=== PATIENT | female | born 1985 | race Caucasian/White ===

== ENCOUNTER → 2021-07-06 15:56 | Outpatient (CLI) | payer OTHER, SELFPAY ==
--- NOTE | ~2021-07-06 | XR_ITS ---
XR chest 2V DATE: 07/06/2021 16:12 INDICATION: Tobacco usage TECHNIQUE: 2 views COMPARISON: None FINDINGS: Normal heart size. No hilar or mediastinal enlargement. No pulmonary infiltrate or consolid ation, pleural effusion or pulmonary vascular congestion or pneumothorax is detected. There is mild thoracic scoliosis. IMPRESSION: No active cardiopulmonary disease Reviewed, dictated and finalized at location B. CIATE PROFESSOR OF MEDIA ARTS
== END ==
PROVIDERS: PCP Emergency Medicine; Visit Provider Emergency Medicine
DX: Z72.0 Tobacco use (principal)
CPT/HCPCS: 71046

== ENCOUNTER → 2021-07-24 15:43 | Outpatient (CLI) | payer OTHER, SELFPAY ==
--- NOTE | ~2021-07-24 | XR_ITS ---
XR cervical spine 4-5V 07/24/2021 16:00 Indication: Neck pain Procedure: 6 views of the cervical spine Comparison: No prior studies for comparison. Findings: Vertebral body and disc heights are preserved. No fracture, subluxation or dislocation. Odontoid process is normal. No prevertebral soft tissue swelling. Lung apices are normal. Impression: 1: No significant abnormality of the cervical spine. Reviewed, dictated and finalized at location A. INSPECTOR HELPER Impression: 1: No significant abnormality of the cervical spine.
== END ==
PROVIDERS: PCP Emergency Medicine; Visit Provider Emergency Medicine
DX: M54.2 Cervicalgia (principal)
CPT/HCPCS: 72050

== ENCOUNTER 2021-10-19 08:29 | Emergency (ER) | payer OTHER, SELFPAY ==
[2021-10-19 08:36] VITALS: BP 124/91; PULSE 79; RESP 18; TEMP 36.6; O2SAT 100
[2021-10-19] MEDS: SODIUM CHLORIDE 0.9% IV 2,000 ML 999 ML IV CONT (09:04)
[2021-10-19 09:05] LABS: Basophils Absolute Auto 0.1 K/mm3 (0.0-0.1); Basophils Percent Auto 0.5 % (0.2-1.2); Eosinophils Absolute Auto 0.1 K/mm3 (0-0.3); Eosinophils Percent Auto 0.4 % (0-4.4); Hematocrit 45.7 % (37.0-47.0); Hemoglobin 15.1 g/dL (12.0-15.0); Immature Granulocyte Absolute 0.16 K/mm3 (0.00-0.031); Immature Granulocyte Percent A 1.1 % (0-0.5); Lymphocytes Absolute Auto 1.86 K/mm3 (0.9-3.2); Lymphocytes Percent Auto 12.5 % (18.3-44.2); Mean Corpuscular Hemoglobin 29.8 pg (26-34); Mean Corpuscular Volume 90.1 fl (80-100); Mean Platelet Volume 10.5 fl (7.4-10.4); Monocytes Absolute Auto 0.9 K/mm3 (0.1-0.6); Monocytes Percent Auto 6.1 % (2.6-8.5); Neutrophils Absolute Auto 11.8 K/mm3 (1.3-6.7); Neutrophils Percent Auto 79.4 % (45.5-73.1); Platelet Count Result 223 k/mm3 (150-375); Red Blood Count 5.07 M/mm3 (4.2-5.4); Red Cell Distribution Width 13.2 % (11.5-14.5); White Blood Count 14.9 K/mm3 (4.5-10.0)
[2021-10-19] MEDS: ONDANSETRON INJ 4 MG/2 ML VIAL IV PUSH (09:06)
[2021-10-19 09:12] LABS: Anion Gap 8 mmol/L (8-16); Blood Urea Nitrogen 12 mg/dL (7-17); Calcium 9.4 mg/dL (8.4-10.2); Carbon Dioxide 24 mmol/L (22-30); Chloride 106 mmol/L (98-107); Estimated CRCL calculation 113 ml/min; Estimated Glomerular Filt Rate > 60; Glucose 109 mg/dL (65-110); Potassium 3.6 mmol/L (3.4-5.0); Sodium 138 mmol/L (137-145)
[2021-10-19] MEDS: diphenhydrAMINE HCl INJ 50 MG/ML VIAL 25 MG IV PUSH (09:59)
[2021-10-19] MEDS: METOCLOPRAMIDE HCL INJ 10 MG/2 ML VIAL IV PUSH (09:59)
[2021-10-19 10:57] LABS: Appearance Urine Slightly Cloudy (Clear); Bilirubin Urine Negative (Negative); Blood Urine Negative (Negative); Color Urine Yellow (Yellow); Glucose Urine UA Negative (Negative); Ketones Urine 2+ mg/dL (Negative); Leukocyte Esterase Ur Negative LEU/UL (Negative); Nitrate Urine Negative (Negative); Protein Urine 1+ mg/dL (Negative); Specific Grav Ur >= 1.030 (1.001-1.035); Urobilinogen Urine 0.2 mg/dL (<2.0); pH Urine 5.5 (5.0-9.0)
[2021-10-19 11:06] LABS: Bacteria Urine Trace /hpf; Mucus Urine Heavy /lpf; RBC Urine 0-2 /hpf (0-2); Squamous Epithelial Cell Urine Few /hpf (Few); WBC Urine 0-3 /hpf
[2021-10-19 11:07] LABS: Add Urine Microscopic? YES
--- NOTE | 2021-10-19 11:56 | ED.NAVMDI ---
HPI - Nausea/Vomiting/Diarrhea General Chief complaint: Nausea/Vomiting/Diarrhea Stated complaint: /vomiting Time Seen by Provider: 10/19/21 08:41 History of Present Illness HPI Narrative: 36-year-old female who is 6 weeks presents here with nausea and vomiting, she states that she has not been able to keep anything down, this happened with her last also, this is not a wanted and her partner had gotten a vasectomy but had not gotten a sperm count. Denies any vaginal bleeding or abdominal pain, she is scheduled for an tomorrow. Related Data Allergies Allergy/AdvReac Type Severity Reaction Status Date / Time Penicillins Allergy Unknown Verified 03/29/16 15:37 Review of Systems Review of Systems: CONST: No fever. HEENT: No sore throat C/V: No chest pain RESP: No cough GI: Reports nausea, vomiting : No dysuria. M/S: No joint pain. SKIN: Itchy rash on both hands NEURO: [No headache or focal numbness or weakness] PSYCH: [No depression] [facility] Past Medical History Medical History Hyperemesis gravidarum Family History Family History Father Family history of suicide Sibling Family history of colonic diverticulitis Other Diabetes mellitus Family history of malignant neoplasm Social History Social History Smoking status: Smoker, status unknown Alcohol intake: never Exam Narrative: EXAMINATION OF ORGAN SYSTEMS/BODY AREAS: Constitutional: Vital signs per nursing GENERAL: Actively retching HEAD: Normal with no signs of head trauma. EYES: EOMI, conjunctiva normal ENT: Hearing grossly intact LUNGS: Nonlabored breathing. HEART: [Regular rate and rhythm] ABD: [Soft], no tenderness on palpation EXT: Normal range of motion SKIN: [No rashes or lesions.] NEURO: [Alert and oriented x 3. No gross focal sensory or strength deficits.] PSYCH: Appears very sad Course Vital Signs Vital signs: Vital Signs Temperature 97.8 F 10/19/21 08:36 Pulse Rate 79 10/19/21 08:36 Respiratory Rate 18 10/19/21 08:36 Blood Pressure 124/91 H 10/19/21 08:36 Pulse Oximetry 100 05/30/22 08:36 Oxygen Delivery Room Air 10/19/21 08:36 Temperature 97.8 F 10/19/21 08:36 Pulse Rate 87 10/19/21 12:11 Respiratory Rate 18 10/19/21 12:11 Blood Pressure 124/91 H 10/19/21 08:36 Pulse Oximetry 98 10/19/21 12:11 Oxygen Delivery Room Air 10/19/21 08:36 MDM - Nausea/Vomiting/Diarrhea MDM Narrative Medical decision making narrative: 36-year-old female at 6 weeks presents with nausea and vomiting, vital signs stable, exam shows soft nontender abdomen but very appearing patient was actively retching, concern is for nausea in , versus very unlikely ectopic as she has no abdominal pain or tenderness, versus gastritis versus viral illness. Itchy rash on hands do appear consistent with dyshidrotic eczema, much less likely scabies given the appearance, much less likely ringworm given the appearance Patient is given IV fluids here, Zofran with out much improvement, she is then given a dose of Reglan and afterwards states that she is feeling much better and ready to go home. Stable for discharge with return precautions provided and prescriptions for nausea provided. She is also counseled to make sure her hands stay moisturized and to use the hydrocortisone cream she has at home. Lab Data Result diagrams: 10/19/21 08:57 10/19/21 08:57 Labs: Lab Results 10/19/21 10/19/21 10/19/21 Range/Units 08:57 08:57 10:49 WBC 14.9 H (4.5-10.0) K/mm3 RBC 5.07 (4.2-5.4) M/mm3 Hgb 15.1 H (12.0-15.0) g/dL Hct 45.7 (37.0-47.0) % MCV 90.1 (80-100) fl MCH 29.8 (26-34) pg MCHC 33.0 (32-36) g/dl RDW 13.2 (11.5-14.5) % Plt Count 223 (150-3
[2021-10-19 12:11] VITALS: PULSE 87; RESP 18; O2SAT 98
== END 2021-10-19 12:12 | disposition home or self-care (01) ==
PROVIDERS: Emergency Provider Emergency Medicine; PCP Family Medicine
DX: O21.9 Vomiting of pregnancy, unspecified (principal); Z3A.01 Less than 8 weeks gestation of pregnancy
CPT/HCPCS: 36415; 80048; 81001; 85025; 96361; 96374; 96375; 99284; J1200; J2405; J2765; J7030

== ENCOUNTER 2022-04-26 16:49 | Emergency (ER) | payer OTHER, SELFPAY ==
--- NOTE | ~2022-04-26 | XR_ITS ---
EXAMINATION: XR chest 2V Exam Date/Time: 04/26/2022 18:00 WATER TRAINER HISTORY: COUGH,FATIGUE Comparison: 07/06/2021. RESULT: Lines, tubes, and devices: None. Lungs and pleura: Slightly increased mild diffuse reticulonodular opacities, streaky perihilar opaci ties and cuffing. Cardiomediastinal silhouette: Stable. Other: No acute osseous or upper abdominal finding. IMPRESSION: Pulmonary opacities may represent bronchiolitis, as can be seen with atypical infection, asthma, aspi ration, and small airways disease. Reviewed, dictated and finalized at location K. R TRAINER IMPRESSION: Pulmonary opacities may represent bronchiolitis, as can be seen with atypical i nfection, asthma, aspiration, and small airways disease.
[2022-04-26 17:00] VITALS: BP 119/66; PULSE 91; RESP 12; TEMP 36.5; O2SAT 100
--- NOTE | 2022-04-26 17:47 | ED.NAVMDI ---
HPI - Nausea/Vomiting/Diarrhea General Chief complaint: Nausea/Vomiting/Diarrhea Stated complaint: Abdominal Pain/Nausea/ Vomiting/Diarrhea Time Seen by Provider: 04/26/22 17:48 Source: patient, RN notes reviewed and old records reviewed Mode of arrival: ambulatory Limitations: no limitations History of Present Illness HPI Narrative: 36-year-old female presents to the [facility] with complaints of abdominal pain, nausea, vomiting and diarrhea. Patient reports that she just finished a [employer]. Symptoms have been going on for over 10 days and she just does not feel well. Tried calling her primary care provider who told her to get tested for ?everything?. Patient is doctor sent in an x-ray as well. Patient states 10 days ago she had a decreased in taste and smell. States currently she does not feel well. Denies any abdominal pain nausea or vomiting currently. Related Data Allergies Allergy/AdvReac Type Severity Reaction Status Date / Time Penicillins Allergy Unknown Rash Verified 04/26/22 17:03 Review of Systems Review of Systems: All systems reviewed & are unremarkable except as noted in HPI and below Constitutional: Constitutional: Reports as per HPI Eyes: Eyes: Reports no additional eye complaints ENT: Reports as per HPI and Reports sore throat Cardiovascular: Cardiovascular: Reports no additional cardiovascular complaints, Denies chest pain and Denies dyspnea Respiratory: Respiratory: Reports no additional respiratory complaints, Denies chest congestion, Denies cough and Denies dyspnea Gastrointestinal: Gastrointestinal: Reports no additional gastrointestinal complaints, Denies abdominal pain, Denies nausea and Denies vomiting Musculoskeletal: Musculoskeletal: Reports no additional musculoskeletal complaints Integumentary/Breasts: Skin/Breast: Reports system reviewed and no additional complaints, except as docu Neurologic: Reports system reviewed and no additional complaints, except as documented Psychiatric: Psychiatric: Reports no additional psychiatric complaints Allergic/Immunologic: Allergic/Immunologic: Reports no additional allergic/immunologic complaints [facility] Past Medical History Medical History Hyperemesis gravidarum Family History Family History Father Family history of suicide Sibling Family history of colonic diverticulitis Other Diabetes mellitus Family history of malignant neoplasm Social History Social History Smoking status: Smoker, status unknown Alcohol intake: never Comments At the time of my signature, I reviewed and agree with the nursing past medical, surgical, social, and family history. There is no relevant family history pertinent to the patient complaint. Exam Const: General: cooperative, healthy appearing, comfortable, no acute distress, well developed, alert, average body habitus and well nourished Nutritional Appearance: average body habitus and well nourished Orientation/consciousness: patient oriented x3 Limitations: no limitations HENMT: Head: normal to inspection Ears: hearing grossly normal bilaterally and external ears normal Face/Nose/Sinus: Normal external nose present, Normal nares present, Normal nasal mucous membranes and turbinates present and normal facial exam Face and sinus: normal facial exam Mouth: Yes Normal oral and palatal mucosa present, Yes lip normal and Yes moist mucous membranes Throat: posterior oropharynx normal and uvula midline Eyes: General: appearance normal, both eyes and all related structures Alignment and Position: alignment normal Periorbital: periorbital findings normal Conjunctivae: conjunctivae normal Pupils: Equal, round and reactive pupils present EOM: EOMs intact bilaterally Neck: Neck: normal visual inspection, full ROM, no lymphadenopathy and no meningeal sig
== END 2022-04-26 19:01 | disposition home or self-care (01) ==
PROVIDERS: Emergency Provider Nurse Practitioner; PCP Emergency Medicine
DX: J18.9 Pneumonia, unspecified organism (principal)
CPT/HCPCS: 71046; 99213; G0463

== ENCOUNTER 2022-10-10 09:18 | Emergency (ER) | payer OTHER, SELFPAY ==
--- NOTE | ~2022-10-10 | CT_ITS ---
EXAMINATION: CT abdomen pelvis w con INDICATION: Epigastric pain TECHNIQUE: Computed tomographic images of the abdomen and pelvis were obtained after the administrati on of 100 cc of Omnipaque 350 intravenous contrast. The dose-length product (DLP) was 394.10 mGy-cm. Automated exposure control and iterative reconstruction technique were employed. COMPARISON: 03/28/2016 FINDINGS: The lung bases are clear. The heart size is normal. The liver, spleen, pancreas, gallbladde r, and adrenal glands are normal. The kidneys are unremarkable. No pathologically enlarged abdominal or pelvic lymph nodes are identified. No free intraperitoneal gas or evidence of bowel obstruction. A small amount of free fluid in the pelvis is likely physiologic. The visualized osseous structures ar e unremarkable. IMPRESSION: 1. No CT correlate for the patient's symptoms. Reviewed, dictated and finalized at location A.
[2022-10-10 09:21] VITALS: BP 111/63; PULSE 61; RESP 16; TEMP 36.5; O2SAT 100
--- NOTE | 2022-10-10 09:39 | ED.GENADULT ---
HPI - General Adult General Chief complaint: Nausea/Vomiting/Diarrhea Stated complaint: sick for a week Time Seen by Provider: 10/10/22 09:22 History of Present Illness HPI narrative: Leigha Grace is a 37 y/o female who presents with reports of about a week long of intermittent nausea/vomiting/diarrhea. She reports that she was at a concert last Tuesday and started to have extreme exhaustion the Tuesday afterward through Tuesday or Tuesday. She started to have upper abdominal irritation with nausea and would make herself vomit to try to feel better. She felt better on Tuesday, then bad again on Tuesday, she felt better on then felt bad again Tuesday and Tuesday. Denies specific abdominal pain. Reports having bowel movements daily in the morning which has been soft intermittently. Denies any known fevers but reports of feeling hot and cold. Denies changes to urination Denies - had a tubal ligation this past May- also history of c-sections X2 Denies vaginal discharge or any changes there. Related Data Allergies Allergy/AdvReac Type Severity Reaction Status Date / Time Penicillins Allergy Unknown Rash Verified 10/10/22 09:23 Review of Systems Review of Systems: CONSTITUTIONAL: Denies fever, chills, or sweats. EYES: Denies visual changes, redness, or discharge. ENT: Denies rhinorrhea, congestion, sore throat, or otalgia. CARDIOVASCULAR: Denies chest pain, palpitations, or edema. RESPIRATORY: Denies cough or dyspnea. GASTROINTESTINAL: Reports of nausea, upper abdominal irritation, soft to loose bowel movements for about 1 week. GENITOURINARY: Denies dysuria or hematuria. SKIN: Denies rash or itching. MUSCULOSKELETAL: Denies back pain, joint pain, or myalgia. NEUROLOGIC: Denies headache, numbness, dizziness, or weakness. PSYCHIATRIC: Denies anxiety or depression. [facility] Past Medical History Medical History Hyperemesis gravidarum Family History Family History Father Family history of suicide Sibling Family history of colonic diverticulitis Other Diabetes mellitus Family history of malignant neoplasm Social History Social History Smoking status: Smoker, status unknown Alcohol intake: never Exam Narrative: GENERAL: Well-appearing, well-nourished, and in no acute distress. HEAD: Normocephalic, atraumatic. EYES: PERRLA and EOMI. ENT: Nares clear, no rhinorrhea or epistaxis. Mucous membranes moist. Oropharynx without tonsillar hypertrophy exudate or other lesions. NECK: Supple. No adenopathy or masses. No carotid bruits or JVD CHEST: Clear to auscultation. No respiratory distress. No wheezes rales or rhonchi HEART: Regular rate and rhythm. No murmur heard. Normal peripheral pulses. ABDOMEN: Soft, nontender, nondistended, normal active bowel sounds. EXTREMITIES: Normal range of motion. No edema. SKIN: Warm, dry, no rash. NEURO: No focal deficits. Alert and oriented x3. PSYCH: Normal mood and affect. Course Vital Signs Vital signs: Vital Signs Temperature 36.5 C 10/10/22 09:21 Pulse Rate 61 10/10/22 09:21 Respiratory Rate 16 10/10/22 09:21 Blood Pressure 111/63 10/10/22 09:21 Pulse Oximetry 100 10/10/22 09:21 Oxygen Delivery Room Air 10/10/22 09:21 Temperature 36.5 C 10/10/22 09:21 Pulse Rate 61 10/10/22 09:21 Respiratory Rate 16 10/10/22 09:21 Blood Pressure 111/63 10/10/22 09:21 Pulse Oximetry 100 10/10/22 09:21 Oxygen Delivery Room Air 10/10/22 09:21 Vitals reviewed by me. Medical Decision Making MDM Narrative Medical decision making narrative: On exam pt is resting comfortably on stretcher, she reports she thinks she might be feeling better now, but feels defeated from not feeling so well over the past week. Her exam is benign. Abdomen is soft, active bowel filipe
[2022-10-10] MEDS: PROCHLORPERAZINE EDISYLATE 10 MG/2 ML VIAL IV PUSH (09:44)
[2022-10-10] MEDS: SODIUM CHLORIDE 0.9% IV 1,000 ML 999 ML IV CONT (09:44)
[2022-10-10] MEDS: FAMOTIDINE 20 MG/2 ML VIAL IV PUSH (09:44)
[2022-10-10 09:46] LABS: Basophils Absolute Auto 0.1 K/mm3 (0.0-0.1); Basophils Percent Auto 0.7 % (0.2-1.2); Eosinophils Absolute Auto 0.1 K/mm3 (0-0.3); Eosinophils Percent Auto 0.4 % (0-4.4); Hematocrit 43.4 % (37.0-47.0); Hemoglobin 14.3 g/dL (12.0-15.0); Immature Granulocyte Absolute 0.07 K/mm3 (0.00-0.031); Immature Granulocyte Percent A 0.5 % (0-0.5); Lymphocytes Absolute Auto 1.89 K/mm3 (0.9-3.2); Lymphocytes Percent Auto 13.8 % (18.3-44.2); Mean Corpuscular HGB Conc 32.9 g/dl (32-36); Mean Corpuscular Hemoglobin 30.2 pg (26-34); Mean Corpuscular Volume 91.6 fl (80-100); Mean Platelet Volume 10.7 fl (7.4-10.4); Monocytes Absolute Auto 0.9 K/mm3 (0.1-0.6); Monocytes Percent Auto 6.5 % (2.6-8.5); Neutrophils Absolute Auto 10.7 K/mm3 (1.3-6.7); Neutrophils Percent Auto 78.1 % (45.5-73.1); Platelet Count Result 197 k/mm3 (150-375); Red Blood Count 4.74 M/mm3 (4.2-5.4); Red Cell Distribution Width 13.1 % (11.5-14.5); White Blood Count 13.7 K/mm3 (4.5-10.0)
[2022-10-10 09:53] LABS: Appearance Urine Cloudy (Clear); Bacteria Urine None Seen /hpf; Bilirubin Urine Negative (Negative); Blood Urine Negative (Negative); Color Urine Yellow (Yellow); Glucose Urine UA Negative (Negative); Ketones Urine Negative (Negative); Leukocyte Esterase Ur Negative LEU/UL (Negative); Nitrate Urine Negative (Negative); Non Pathogenic Casts 0-2; Protein Urine Negative (Negative); RBC Urine 0-2 /hpf (0-2); Specific Grav Ur 1.029 (1.001-1.035); Squamous Epithelial Cell Urine Few /hpf (Few); Urobilinogen Urine 0.2 mg/dL (<2.0); WBC Urine 0-5 /hpf
[2022-10-10 09:57] LABS: Alanine Aminotransferase 28 U/L (6-35); Albumin Level 4.3 g/dL (3.5-5.1); Alkaline Phosphatase 56 U/L (38-126); Anion Gap 8 mmol/L (8-16); Aspartate Amino Transferase 23 U/L (14-36); Bilirubin,Total 0.4 mg/dL (0.2-1.3); Blood Urea Nitrogen 18 mg/dL (7-17); Calcium 8.7 mg/dL (8.4-10.2); Carbon Dioxide 21 mmol/L (22-30); Chloride 107 mmol/L (98-107); Estimated CRCL calculation 112 ml/min; Estimated Glomerular Filt Rate > 60; Glucose 101 mg/dL (65-110); Lipase 90 U/L (23-300); Potassium 4.3 mmol/L (3.4-5.0); Sodium 136 mmol/L (137-145)
[2022-10-10 10:13] LABS: Add Urine Microscopic? YES
[2022-10-10 11:03] LABS: Lactic Acid Reflex 1.6 mmol/L (0.7-2.0)
[2022-10-10 11:09] VITALS: BP 120/80; PULSE 68; RESP 18; O2SAT 100
== END 2022-10-10 11:11 | disposition home or self-care (01) ==
PROVIDERS: Emergency Provider Nurse Practitioner Family; PCP Emergency Medicine
DX: K29.70 Gastritis, unspecified, without bleeding (principal); K58.9 Irritable bowel syndrome, unspecified
CPT/HCPCS: 36415; 74177; 80053; 81001; 81025; 83605; 83690; 85025; 96361; 96374; 96375; 99284; J0780; J7030; Q9967

== ENCOUNTER 2023-04-16 11:54 | Outpatient (CLI) | payer OTHER, SELFPAY ==
--- NOTE | ~2023-04-16 | MM_ITS ---
EXAMINATION: MM screening damon BI w sunday HISTORY: Screening mammogram TECHNIQUE: Craniocaudal and mediolateral oblique 3-D tomosynthesis images were obtained and synthetic 2-D images were generated. CAD analysis was submitted and interpreted. COMPARISON: No prior mammogram is available for comparison at this institution. BREAST PARENCHYMAL COMPOSITION:There are scattered areas of fibroglandular density. FINDINGS: No suspicious mass, calcification, or architectural distortion are identified in either sadia ast to suggest malignancy. IMPRESSION: No mammographic evidence of malignancy. Recommend routine screening mammography in one year. BI-RADS Category 1: Negative Reviewed, dictated and finalized at location . [facility]
== END 2023-04-16 11:55 | disposition home or self-care (01) ==
PROVIDERS: PCP Emergency Medicine; Visit Provider Surgery Plastic and Reconstructive Surgery
DX: Z12.31 Encounter for screening mammogram for malignant neoplasm of breast (principal)
CPT/HCPCS: 77063; 77067

== ENCOUNTER 2023-08-06 08:16 | Outpatient (CLI) | payer OTHER, SELFPAY ==
--- NOTE | 2023-08-06 08:37 | ECG_ITS ---
Measurements Intervals [place] Rate: 53 P: 75 MD: 116 QRS: 56 QRSD: 85 T: 44 QT: 403 QTc: 381 Interpretive Statements SINUS BRADYCARDIA WITH SHORT MD INTERVAL BORDERLINE ECG NO PREVIOUS ECG AVAILABLE FOR COMPARISON Electronically Signed On 08-06-2023 17:41:48 CDT by Xander Garcia D.O.
[2023-08-06 08:48] LABS: Hematocrit 42.3 % (37.0-47.0); Hemoglobin 13.5 g/dL (12.0-15.0)
== END 2023-08-06 08:17 | disposition home or self-care (01) ==
LOC: ANHLAB 08:18
PROVIDERS: PCP Emergency Medicine; Visit Provider Anesthesiology
DX: Z41.1 Encounter for cosmetic surgery (principal); R94.31 Abnormal electrocardiogram [ECG] [EKG]
CPT/HCPCS: 36415; 85014; 85018; 93005

== ENCOUNTER 2023-08-09 00:04 | Day surgery (SDC) | payer OTHER, SELFPAY ==
[2023-08-01 14:36] VITALS: BMI 22.8
--- NOTE | 2023-08-01 14:42 | PC.NURSE ---
Report to the Outpatient Waiting Room, entrance under the green pavilion located off [facility], at time 6:00 on date 08/09/23. Planned Procedure Time: 7:30. Time changes happen often and if your time is changed the preop area will call you the afternoon before. - You and your visitor will be asked to self-screen and do not enter if you have any COVID symptoms. - A mask is optional within the hospital at this time. Patients may have clear liquids (water, carbonated beverages, clear teas, apple juice) until 3 hours prior to surgery (4:30) with a maximum of 20 ounces. - No food from midnight until time of surgery Take the following medications with a SIP of water the morning of surgery: XANAX IF NEEDED DO NOT STOP ANY OF YOUR OTHER PRESCRIPTION MEDICATIONS PRIOR TO SURGERY ?EXCEPT THE FOLLOWING Medications to discontinue per physician: N/A Date to take last dose: N/A Please no make-up, nail ecuadorean, hairspray, perfume, deodorant, or body powder the day of surgery. No jewelry (including any body piercings) or valuables the day of surgery, leave them at home. Please take a shower or bath the night before, or the morning of, surgery with an antibacterial soap. Wear comfortable, loose fitting clothing. - Jewelry must be removed prior to entering the operating room. Rings and piercings that are not removed may be cut off. - The hospital will not accept responsibility for valuables. - Please leave all valuables, including medications, at home the day of surgery. If you are going home after surgery, a licensed truck driver must drive you home. - NO public transportation without another adult if you receive anesthesia. - We recommend that an adult stay with you for 24 hours following discharge. - We also recommend that you do not drive, make important decision, drink alcoholic beverages, or take any drugs that were not prescribed by your health care provider for at least 24 hours after your discharge time. Follow any additional instructions given to you from your surgeon. If you or anyone in your household have experienced Covid symptoms in the past week, please notify your surgeon or the nurse liaison at the phone number below for possible testing. Telephone instructions given to PT - [facility] and asked if any additional questions and then verbalized understanding. Patient advised to call surgeon office or pre surgery nurse liaison [phone] if any additional questions.
[2023-08-09] VITALS (14 sets, daily range): BP systolic 107–132; BP diastolic 58–81; PULSE 62–83; RESP 12–18; TEMP 36.2–36.3; O2SAT 97–100
[2023-08-09 06:45] LABS: Urine Cotinine NEGATIVE
[2023-08-09] MEDS: LACTATED RINGERS 1,000 ML 30 ML IV CONT ×3 (06:45→15:31)
--- NOTE | 2023-08-09 06:48 | WPDANESEPPF ---
Anes - Initial Pre Proc Eval Procedure: Operation Date: 08/09/23 07:30 Proposed Procedures p Bilateral Breast Mastopexy with Galaflex, - Joaquín Davis MD s Abdominoplasty with Liposuction - Joaquín Davis MD s Bilateral Breast Augmentation - Joaquín Davis MD Date/Time: 08/09/23 06:48 Surgeon: Joaquín Davis MD Pre Op Diagnosis: skin laxity, breast ptosis Patient Data Age: 37 Gender: F Height: 1.73 m Weight: 68.05 kg Allergies Allergy/AdvReac Type Severity Reaction Status Date / Time Penicillins Allergy Unknown Rash Verified 08/01/23 14:34 Home Medications Medication Instructions Recorded Confirmed Type inhalational spacing device (Space #1 ea 04/26/22 Rx Chamber) alprazolam 0.5 mg tablet 0.5 mg PO PRN PRN Anxiety 08/01/23 08/01/23 History Laboratory Tests 08/09/23 06:12 Cotinine Negative Patient hx anesthesia problems: none Family hx anesthesia problems: none Results Review: All pre-operative results and documents have been reviewed as part of the pre-operative evaluation. [facility] Past Medical History Medical History (Updated 08/09/23 @ 06:49 by César Luciano MD) Anxiety Hyperemesis gravidarum Smoker Squamous cell skin cancer, thigh Surgical History Surgical History (Updated 08/09/23 @ 06:48 by César Luciano MD) History of section History of tubal ligation Family History Family History Father Family history of suicide Sibling Family history of colonic diverticulitis Other Diabetes mellitus Family history of malignant neoplasm Social History Social History Smoking packs per day: 1 Smoking cigarettes per day: 20.0 Years smoked: 15 Smoking pack-years: 15.00 Smoking status: Former smoker Tobacco type: cigarettes Smoking end date: 06/13/23 Alcohol intake: former Alcohol use details: SOBER 10 YEARS Substance use: current Substance use type: marijuana Living arrangements: with family Additional living arrangements comments: CHILDREN Spiritual care concerns: No Anes - Eval Final PreProcedure Day of Procedure 08/09/23 06:48 Patient weight: normal Heart: regular rate and rhythm Lungs: clear to auscultation Airway: Mallampati scale class II Neurological: alert and oriented Last oral intake: >/= 8 hours ASA classification: II Emergent: no Anesthetic plan: proceed Anesthesia type and monitoring: general ETT and standard monitoring Results Review: All pre-operative results and documents have been reviewed as part of the pre-operative evaluation. Informed Consent: The patient's anesthetic plan and its attendant risks and benefits were discussed with the patient/family/POA. Questions were solicited and answers provided to the satisfaction of the patient/family/POA.
[2023-08-09] MEDS: SCOPOLAMINE 1 MG PATCH 1 PATCH TRANSDERM (07:00)
--- NOTE | 2023-08-09 07:03 | WPDHPUPDATE1 ---
History and Physical Update Update Date/Time: 08/09/23 07:03 History and Physical has been reviewed, including an updated exam of the patient. There are NO changes in the patient's condition. Risks, benefits, and alternatives have been discussed and questions answered. Patient agrees to proceed with procedure.
--- NOTE | 2023-08-09 07:07 | W.PM.PROC2 ---
Procedure Note - Detailed Date of Procedure 08/09/23 Pre-op Diagnosis skin laxity, breast ptosis Post-op Diagnosis Same Procedure Performed Bilateral augmentation mastopexy with galaflex Progressive tension abdominoplasty with suction lipectomy Surgeon Joaquín Davis MD Anesthesia General Findings Inverted T Superior medial pedicle Bilateral Andie Nguyen SoftTouch [cc] Right - REF# [id number] SN [id number] Left - REF# [id number] SN [id number] Lipoaspirate: 500 cc Tissue removed: 687 grams Description of Procedure She is here today for the above procedures. Previously and again today the risks, benefits, alternatives were discussed in extensive detail. I wanted them to be very realistic about the risks involved as well as expectations. We discussed aftercare and what to monitor for. I was very upfront about the risks of wound breakdown leading to loss of skin, open wounds, and need for additional procedures with permanent abdominal deformity. We discussed DVT/PE risks and management. Made sure answered all of their questions to their satisfaction today and consent was obtained. They were marked in the preoperative holding area with their verification. The patient was taken to the operating room. Anesthesia was provided by anesthesiology. A Giang catheter was started. Posterior Placed prone on the operating room table with care taken to protect from injury. Prepped and draped in a standard sterile fashion. A surgical time-out was taken. Stab incisions were made and tumescent solution was infiltrated. Once adequate time was allowed for hemostasis a 5mm basket and 3mm multi hole cannula were utilized to complete suction lipectomy based on S.A.F.E. technique in multiple planes and passes. Suction lipectomy continued to result based on pre-operative planning, intra-operative observation, and rolling pinch test which were in full agreement. Patient was then placed supine with care taken to protect from injury. Breast We cleansed the skin and 1% lidocaine and 0.25% Marcaine with epinephrine was used anesthetize as a field block. Prepped and draped in a standard sterile fashion. Tegaderm nipple Stuart were placed. A 15 blade used to make an incision just superior to the inframammary fold leaving a cusp of de-epithelized tissue at the t junction. Dissection was continued until the chest wall as identified. I incised the pectoralis major along its inferior border and completely released the inferior border leaving the medial border intact. I created a subpectoral pocket in the appropriate dimensions based on our preoperative planning for the implant. I then copiously irrigated with saline solution and verified a strict hemostasis. Next the use a triple antibiotic and Betadine containing solution to irrigate the pocket. I washed my gloves with the triple antibiotic and Betadine solution. We washed the implant immediately upon opening it with this solution and only opened it when we needed it. I used implant funnel and no-touch technique. The implant was introduced into the pocket using the funnel. Having verified positioning of the implant this was closed using 2-0 PDS. I tailor tacked the breast into position. Placed her in a sitting position. Verified the nipple-areolar location based on preoperative planning as well as intraoperative observations and measurements in full agreement. She was placed supine. I de-epithelialized the pedicle. I then removed the inferior central portion of the breast need making sure the implant was well protected. I elevated medial and lateral tissue flaps as well for planned closure. Galaflex was soaking on the back table in a betadine solution. Trimmed and sutured into place with 2-0 Vicryl. I closed along the IMF with 2-0 Stratafix. Along the vertical with 2-0 PDS. I closed around the areola with 3-0 strata fix. 3-0 Monocryl along the vertical. 3-0 Stratafix along the IMF. I finally close
[2023-08-09] MEDS: ceFAZolin 2 GM/D5W 50 ML 2 GM/50 ML BAG IVPB (07:38)
[2023-08-09] MEDS: NACL 0.9% IRRIG POUR BOTTLE 900 ML, GENTAMICIN SULFATE INJ 160 MG, CLINDAMYCIN PHOS INJ... IRRIGATION (07:42)
[2023-08-09] MEDS: LACTATED RINGERS IRRIG 1,000 ML, LIDOCAINE HCL 1% LOCAL INJ 50 ML, EPINEPHrine HCL INJ ... INFILTRATE (07:42)
[2023-08-09] MEDS: BUPIVACAINE/EPINEPHRINE 0.5% 30 ML VIAL 60 ML INFILTRATE (07:42)
[2023-08-09] MEDS: TRANEXAMIC ACID 1,000MG/ISO100 1,000 MG/100 ML BAG 200 MG IVPB (07:54)
[2023-08-09] MEDS: ceFAZolin SODIUM 1 GM VIAL IV PUSH (12:17)
--- NOTE | 2023-08-09 12:38 | SUR.OPER ---
1002: Galaflex soaked in antibiotic solution by Dr. Joaquín Davis. Solution mixed in pharmacy containinL NS, 2GM Ancef, 160MG Gentamycin, 100ML Betadine Solution
[2023-08-09] MEDS: fentaNYL CITRATE INJ (*CRX) 100 MCG/2 ML VIAL 25 MCG IV PUSH ×8 (14:01→15:34)
[2023-08-09] MEDS: diphenhydrAMINE HCl INJ 50 MG/ML VIAL 25 MG IV PUSH (14:29)
[2023-08-09] MEDS: oxyCODONE HCL (*CRX) 5 MG TAB IR PO (16:45)
[2023-08-09] MEDS: ONDANSETRON HCL ODT 4 MG TABLET PO (17:35)
== END 2023-08-09 17:35 | disposition home health service (06) ==
PROVIDERS: PCP Emergency Medicine; Visit Provider Surgery Plastic and Reconstructive Surgery
PROC: (CPT 19316; principal; 2023-08-09 07:30)
PROC: (CPT 19325; 2023-08-09 07:30)
PROC: (CPT 19325; 2023-08-09 07:30)
DX: Z41.1 Encounter for cosmetic surgery (principal); L57.4 Cutis laxa senilis; N64.81 Ptosis of breast
CPT/HCPCS: 19325; 19316; 15777 ×2; 15830; 15847; 15877; 80307; A9270; J0171; J0690; J1100; J1170; J1200; J1580; J2250; J2405; J2704; J3010; J7120

== ENCOUNTER 2024-01-16 16:46 | Emergency (ER) | payer OTHER, SELFPAY ==
[2024-01-16 17:00] VITALS: BP 115/67; PULSE 93; RESP 20; TEMP 37.5; O2SAT 100
--- NOTE | 2024-01-16 17:01 | ED.URI ---
HPI - URI/Sore Throat General Chief Complaint: Upper Respiratory Infection Stated Complaint: Cough Time Seen by Provider: 01/16/24 17:01 Source: patient, RN notes reviewed and old records reviewed Mode of arrival: ambulatory Limitations: no limitations History of Present Illness HPI Narrative: 38-year-old female presents to the [facility] with complaints of body aches, flu-like symptoms since Tuesday, 3 days. Has taken [id number] cold medicine. Onset (ago): day(s) (3) Treatments prior to arrival: cold medicine Related Data Home Medications Medication Instructions Recorded Confirmed alprazolam 0.5 mg tablet 0.5 mg PO PRN PRN Anxiety 08/01/23 01/16/24 Allergies Allergy/AdvReac Type Severity Reaction Status Date / Time Penicillins Allergy Unknown Rash Verified 01/16/24 17:05 Review of Systems Review of Systems: All systems reviewed & are unremarkable except as noted in HPI and below Constitutional: Constitutional: Reports as per HPI and Reports body ache(s) Eyes: Eyes: Reports no additional eye complaints ENT: Reports system reviewed and no additional complaints, except as documented Cardiovascular: Cardiovascular: Reports no additional cardiovascular complaints, Denies chest pain and Denies dyspnea Respiratory: Respiratory: Reports no additional respiratory complaints, Denies chest congestion, Denies cough and Denies dyspnea Gastrointestinal: Gastrointestinal: Reports no additional gastrointestinal complaints, Denies abdominal pain, Denies nausea and Denies vomiting Musculoskeletal: Musculoskeletal: Reports no additional musculoskeletal complaints Integumentary/Breasts: Skin/Breast: Reports system reviewed and no additional complaints, except as docu Neurologic: Reports system reviewed and no additional complaints, except as documented Psychiatric: Psychiatric: Reports no additional psychiatric complaints Allergic/Immunologic: Allergic/Immunologic: Reports no additional allergic/immunologic complaints [facility] Past Medical History Medical History Anxiety Hyperemesis gravidarum Smoker Squamous cell skin cancer, thigh Surgical History Surgical History History of section History of tubal ligation Family History Family History Father Family history of suicide Sibling Family history of colonic diverticulitis Other Diabetes mellitus Family history of malignant neoplasm Social History Social History Smoking packs per day: 1 Smoking cigarettes per day: 20.0 Years smoked: 15 Smoking pack-years: 15.00 Smoking status: Former smoker Tobacco type: cigarettes Smoking end date: 06/13/23 Alcohol intake: former Alcohol use details: SOBER 10 YEARS Substance use: current Substance use type: marijuana Living arrangements: with family Additional living arrangements comments: CHILDREN Spiritual care concerns: No Comments At the time of my signature, I reviewed and agree with the nursing past medical, surgical, social, and family history. There is no relevant family history pertinent to the patient complaint. Exam Const: General: cooperative, healthy appearing, comfortable, no acute distress, well developed, alert and well nourished Nutritional Appearance: well nourished Orientation/consciousness: patient oriented x3 Limitations: no limitations HENMT: Head: normal to inspection Ears: hearing grossly normal bilaterally and external ears normal Face/Nose/Sinus: Normal external nose present, Normal nares present, Normal nasal mucous membranes and turbinates present, normal facial exam and face symmetric Face and sinus: normal facial exam and face symmetric Eyes: General: appearance normal, both eyes and all related structures Alignment and Positio
[2024-01-16 17:18] LABS: EDINFLUASCREEN Negative; EDINFLUBSCREEN Negative
== END 2024-01-16 17:35 | disposition home or self-care (01) ==
PROVIDERS: Emergency Provider Nurse Practitioner; PCP Emergency Medicine
DX: J06.9 Acute upper respiratory infection, unspecified (principal); Z20.822 Contact with and (suspected) exposure to COVID-19; Z87.891 Personal history of nicotine dependence; F12.90 Cannabis use, unspecified, uncomplicated; F41.9 Anxiety disorder, unspecified; Z85.828 Personal history of other malignant neoplasm of skin
CPT/HCPCS: 87426; 87804; 99213; G0463

== ENCOUNTER 2024-07-11 14:59 | Emergency (ER) | payer OTHER, SELFPAY ==
--- NOTE | ~2024-07-11 | XR_ITS ---
EXAMINATION: XR chest 2V DATE: 07/11/2024 15:19 INDICATION: Chest pain. TECHNIQUE: Frontal and lateral views of the chest were obtained. COMPARISON: Chest 2 views 04/26/2022, CT abdomen and pelvis 10/20/2022 FINDINGS: There is no pneumonia, pleural effusion, or pneumothorax. The heart size is normal. IMPRESSION: 1. No acute cardiopulmonary disease. Reviewed, dictated and finalized at location A. ER ELECTRICIAN
--- NOTE | ~2024-07-11 | CT_ITS ---
EXAMINATION: CT brain wo con DATE: 07/11/2024 16:33 INDICATION: Dizziness TECHNIQUE: Computed tomography (CT) of the head was performed without intravenous contrast. Sagittal and coronal reconstructions were performed. The mA was adjusted according to patient size. Iterative reconstruction technique was employed. The dose-length product was 605.33 mGy-cm. COMPARISON: None FINDINGS: No acute intracranial hemorrhage, acute infarction or abnormal extra axial fluid collection. Ventricl es are normal and symmetric. No mass/mass effect. Small amount of mucus in the posterior right ethmoi d air cell. The orbits, paranasal sinuses and mastoid air cells are normal. IMPRESSION: 1. Normal brain. No acute intracranial process. Reviewed, dictated and finalized at location A. ER AND COMPRESSOR ASSEMBLER
--- NOTE | 2024-07-11 15:00 | ECG_ITS ---
Test Date: 2024-07-11 15:08:43 Measurements Intervals [place] Rate: 89 P: 80 MT: 126 QRS: 56 QRSD: 73 T: 56 QT: 328 QTc: 401 Interpretive Statements SINUS RHYTHM POSSIBLE RIGHT ATRIAL ENLARGEMENT LEFT ATRIAL ENLARGEMENT CONSIDER RIGHT VENTRICULAR CONDUCTION DELAY BORDERLINE ECG No previous ECG available for comparison Electronically Signed On 07-11-2024 18:52:18 TECHNICAL SERVICES SPECIALIST by Xander Garcia D.O.
[2024-07-11 15:02] VITALS: BP 115/60; PULSE 82; RESP 16; TEMP 36.4; O2SAT 100
--- OUTSIDE RECORDS SUMMARY | 2024-07-11 15:02 | XMS_ITS | Clinical Summary ---
Author Organization [facility] [address] at the Medical Office Building Address [facility] [place] [address] Care Team Providers Care Bundle Helper Name Role Phone Richy Polanco MD Primary Care Provider [phone] Cordell Dubose MD Unavailable [phone] Allergies Active Allergy Reactions Criticality Noted Date Comments Penicillin G Benzathine Rash Medium 05/14/2019 rash Medications buPROPion SR (WELLBUTRIN SR) 150 mg 12 hr tablet 02/18/2023 Active ALPRAZolam (XANAX) 0.5 mg tabletIndicatio ns:Generalized anxiety disorder Take 1 tablet (0.5 mg total) by mouth 2 (two) times a day as needed for anxiety 30 tablet 1 03/17/2023 Active metroNIDAZOLE (FLAGYL) 500 mg tablet Take 1 tablet (500 mg total) by mouth 2 (two) times a day for 7 days 14 tablet 06/07/2024 06/14/19 25 Active Problems Problem Noted Date Diagnosed Date Status post bilateral salpingectomy for steriliz ation 07/01/2022 Primary fibromyalgia syndrome 08/18/2021 Generalized anxiety disorder 05/26/2015 Resolved Problems Problem Noted Date Diagnosed Date Resolved Date Paragard IUD - 05/201405/29/201910/02 Encounters Date Type Department Care Team Description 06/06/2024 Telephone [facility] Obstetrical Gynecology [facility] [address] Latasha Alvarenga MD from Last 3 Months Immunizations Immunization Administration Dates Next Due Influenza, Quadrivalent, Split, Intramuscular Tdap 02/28/2010 Surgical History Surgery Date Site/Laterality Comments SECTION 05/23/2013 - 05/22/2014 HERNIA REPAIR 05/23/2015 - 05/22/2016 Medical History Medical History Date Comments Cancer (CMS/HCC) (HCC) 2019 skin canc er Pneumonia 2021 Anxiety Family History Medical History Relation Name Comments Breast cancer Maternal Grandmother Relation Name Status Comments Maternal Grandmother at age 50's Social History Tobacco Use Types Packs/Day Years Used Date Smoking Tobacco: Every Day Cigarettes Smokeless Tobacco: Never Alcohol Use Standard Drinks/Week Comments Never 0 (1 standard drink = 0.6 oz pur e alcohol) AUDIT-C Answer Date Recorded Q1: How often do you have a drink containing alcohol? Never 06/17/2022 Q2: How many drinks containi ng alcohol do you have on a typical day when you are drinking? Patient does not drink Q3: How often do you have si x or more drinks on one occasion? Never 06/17/2022 Comments No Sex and Gender Information Value Date Recorded Sex Assigned at Not on file Legal Sex Female 6:00 PM BALANCE SHEET ANALYST Gender Identity Not on file Sexual Orientation Not on file Obstetrics History Para Term AB IAB SAB Ectopic Multiple Livin g Live Births 3 2 2 1 2 Date Outcome GA Total Labor Labor/2nd/3rd Weight Sex Type Anes PTL Rosetta A1 A5 Name Clin Term CS-LTra nv Term CS-LTra nv AB Comments Menarche:15 First baby:22 Last Filed Vital Signs Vital Sign Reading Time Taken Comments Blood Pressure 122/80 03/16/2024 3:26 PM CDT Pulse 65 06/17/2022 9:50 AM BALANCE SHEET ANALYST Temperature 36.6 C (97.8 F) 06/17/2022 8:50 AM BALANCE SHEET ANALYST Respiratory Rate 16 06/17/2022 9:20 AM BALANCE SHEET ANALYST Oxygen Saturation 99% 06/17/2022 9:50 AM BALANCE SHEET ANALYST Inhaled Oxygen Concentration - - Weight 67.9 kg (149 lb 12.8 oz) 03/16/2024 3:26 PM CDT Height 172.7 cm (5' 7.99 ) 03/16/2024 3:26 PM CD T Body Mass Index 22.78 03/16/2024 3:26 PM CDT Plan of Treatment Health Maintenance Due Date Last Done Comments Depression Screening 1987 Hepatitis C Screening 1987 Varicella Vaccines (1 of 2 - 13+ 2-dose series) 09/07/2000 Hepatitis B Screening 09/07/2005 Pneumococcal vaccine <65 (1 of 2 - PCV) 09/07/2006 DTaP/Tdap/Td Vaccine (2 - Td or Tdap) 02/29/2020 02/28/2010 Influenza Vaccine (#1) 2024 02/23/2016 Cervical Cancer Screening 03/14/2024 03/14/2023, Regular Well Visit/Exam 18-64 03/16/2025 03/16/2024, 03/14/2023, 03/11/2022, Additional history exists HPV Vaccines Aged Out No longer eligi ble based on patient's age to complete this topic Procedures Procedure Name Priority Date/Time Associated Diagnosis Comments HIGH RISK HPV DNA DETECTION WITH GENOTYPING Routine 03/14/2023 8:57 AM CDT from Last 3 Months or Most Recently Relevant to Health Maintenance Results * High Risk HPV DNA Detection with Genotyping (Molecular component) (03/14/2023 8:57 AM CDT) HPV HR 16 Not Detected Not Detected GUY Comment:Testing performed by : [facility], [address] [place]., [address] HPV HR 18 Not Detected Not Detected GUY Comment:Testing performed by : [facility], [address] [place]., [address] HPV HR Non 16/18 Not Detected Not Detected GUY Comment: Interpretive Data Nucleic acid amplification for detection of high-risk Human Papilloma virus (HPV) is performed by the Charlee Angelo 6800 HPV test. This assay specifically detects HPV-16 and HPV-18 genotypes. The following HPV genotypes are detected as high-risk HPV: HPV-31, 33, 35, ,39, 45, 51, 52, 56, 58, 59, 66, and 68. This assay has been approved by the [place] Food and Drug Administration for detection of HPV in cervical specimens collected by a physician using an endocervical brush/spatula or cervical broom and placed in the ThinPrep Pap Test PreservCyt collection containers. The performance characteristics of this test have been verified by the [facility] Molecular Infectious Disease laboratory. Correlate with separately reported cytology results, as applicable. Interpretive data last revised 22 Testing performed by: [facility], [address] [facility], [place]., [address] Endocervical 03/14/2023 8:57 AM CDT 03/16/2023 7:35 PM CDT us Cordell Dubose MD LAB BODY FLUIDS AND STOOLS ORDERABLES Final Result [id number] [id number] [facility] Department [place] [address] from Last 3 Months or Most Recently Relevant to Health Maintenance Insurance [facility] Care Teams Bundle Helper Relationship Specialty Start Date End Date Richy Polanco MD [address] [address] PCP - General 10/25/18 Cordell Dubose MD [address] [address] Consulting Physician Obstetrics and Gynecology 06/17/22
--- OUTSIDE RECORDS SUMMARY | 2024-07-11 15:02 | XMS_ITS | Clinical Summary ---
Author Organization [facility] Address [address] [place] [phone] Care Team Providers Care Dosier Operator Name Role Phone Unavailable Primary Care Provider Unavailabl e Social History Tobacco Use Types Packs/Day Years Used Date Smoking Tobacco: Never Assessed Comments Unknown Sex and Gender Information Value Date Recorded Sex Assigned at Not on file Legal Sex Female 2:36 PM CASEWORK SUPERVISOR Gender Identity Not on file Sexual Orientation Not on file Plan of Treatment Health Maintenance Due Date Last Done Comments Hepatitis C Virus (HCV) Screening 1987 Hepatitis B Immunization (1 of 3 - 19+ 3-dose series) 09/07/2006 Pap Smear 09/07/2008 Cervical Cancer Screening (CCS) 09/07/2017 HPV/Cotest 09/07/2017 Influenza Immunization (#1) 2024 02/23/2016 SARS-COV-2 Immunization ( season) 2024 Respiratory Syncytial Virus (RSV) Immunization (Adult) (1 - 1-dose 75+ series) 09/07/2062 DTaP/Tdap/Td Immunization Discontinued 02/28/2010 TdaP Immunization Completed 02/28/2010 Meningococcal Immunization (ACWY) Aged Out No longer eligible based on patient's age to complete this topic Pneumococcal Immunization Combined Aged Out No longer eligible b ased on patient's age to complete this topic Rotavirus Immunization Aged Out No lo nger eligible based on patient's age to complete this topic
--- OUTSIDE RECORDS SUMMARY | 2024-07-11 15:02 | XMS_ITS | Clinical Summary ---
Author Organization [facility] Address [facility] [place] [address] Care Team Providers Care Certified Optician Name Role Phone Richy Polanco MD Primary Care Provider Allergies Active Allergy Reactions Criticality Noted Date Comments Penicillins Rash Low 11/12/2017 Medications lorazepam 0.5 MG tablet Take 0.5 mg by mouth every 6 (six) hours as needed for Anxiety. Active Social History Tobacco Use Types Packs/Day Years Used Date Smoking Tobacco: Every Day Cigarettes 1 15 Smokeless Tobacco: Never Tobacco Cessation:Ready to Q uit: No Alcohol Use Standard Drinks/Week Comments No 0 (1 standard drink = 0.6 oz pur e alcohol) Comments Unknown Sex and Gender Information Value Date Recorded Sex Assigned at Not on file Legal Sex Female 7:52 PM CDT Gender Identity Not on file Sexual Orientation Not on file Last Filed Vital Signs Vital Sign Reading Time Taken Comments Blood Pressure 123/71 11/12/2017 3:47 PM CDT Pulse 73 11/12/2017 3:47 PM CDT Temperature 36.9 C (98.4 F) 11/12/2017 3:47 PM CDT Respiratory Rate 18 11/12/2017 3:47 PM CDT Oxygen Saturation 99% 11/12/2017 3:47 PM CDT Inhaled Oxygen Concentration - - Weight 70.8 kg (156 lb) 11/12/2017 3:47 PM CDT Height 172.7 cm (5' 8 ) 11/12/2017 3:47 PM CDT Body Mass Index 23.72 11/12/2017 3:47 PM CDT Plan of Treatment Health Maintenance Due Date Last Done Comments Cervical Cancer Screening Pa danny Smear (Age 30 to 64) Every 3 Years 1987 Annual Physical 09/07/1990 Pneumococcal Vaccine: Pediat rics (0 to 5 Years) and At-Risk Patients (6 to 64 Years) (1 of 2 - PCV) 09/07/1993 Hepatitis C 09/07/2005 DTaP, Tdap and Td Vaccines ( 1 - Tdap) 09/07/2006 Hepatitis B Vaccines (1 of 3 - 19+ 3-dose series) 09/07/2006 Cervical Cancer Screening Pa danny with HPV Testing (Age 30 to 64) Every 5 Years 09/07/2017 Cervical Cancer Screening with HPV 09/07/2017 COVID-19 Vaccine (2023-2 5 season) 2024 Influenza Adult (#1) 2024 HPV Vaccines Aged Out No longer eligi ble based on patient's age to complete this topic Meningococcal B Vaccine Aged Out No l onger eligible based on patient's age to complete this topic Meningococcal Vaccine Aged Out No yoel brandi eligible based on patient's age to complete this topic RSV Immunizations Under 20 Months Aged Out No longer eligible based on patient's age to complete this topic Additional Health Concerns Infection Onset Date Last 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
--- OUTSIDE RECORDS SUMMARY | 2024-07-11 15:02 | XMS_ITS | Referral Summary ---
Author Organization [facility] [address] at the Medical Office Building Address [facility] [place] [address] Care Team Providers Care Wet End Supervisor Name Role Phone Richy Polanco MD Primary Care Provider [phone] Cordell Dubose MD Unavailable [phone] Encounters Date Type Department Care Team Description 06/06/2024 Telephone [facility] Obstetrical Gynecology [facility] [address] [place] [phone] Latasha Alvarenga MD from Last 3 Months Allergies Active Allergy Reactions Criticality Noted Date [...] Date Resolved Date Paragard IUD - 05/201405/29/201910/02 Immunizations Immunization Administration Dates Next Due Influenza, Quadrivalent, Split, Intramuscular Tdap 02/28/2010 Social History Tobacco Use Types Packs/Day Years [...] on file Legal Sex Female 6:00 PM PHYSICIAN IN PRIVATE PRACTICE Gender Identity Not on file Sexual Orientation Not on file Last Filed Vital Signs Vital Sign Reading Time Taken Comments Blood Pressure 122/80 03/16/2024 3:26 PM CDT Pulse 65 06/17/2022 9:50 AM PHYSICIAN IN PRIVATE PRACTICE Temperature 36.6 C (97.8 F) 06/17/2022 8:50 AM PHYSICIAN IN PRIVATE PRACTICE Respiratory Rate 16 06/17/2022 9:20 AM PHYSICIAN IN PRIVATE PRACTICE Oxygen Saturation 99% 06/17/2022 9:50 AM PHYSICIAN IN PRIVATE PRACTICE Inhaled Oxygen Concentration - - Weight 67.9 kg (149 lb 12.8 oz) 03/16/2024 3:26 PM CDT Height 172.7 cm (5' 7.99 ) 03/16/2024 3:26 PM CD T Body Mass Index 22.78 03/16/2024 3:26 PM CDT Plan of Treatment Not on file Procedures Procedure Name Priority Date/Time Associated Diagnosis Comments HIGH RISK HPV DNA DETECTION WITH GENOTYPING Routine 03/14/2023 8:57 AM CDT from Last 3 Months or Most Recently Relevant to Health Maintenance Results * High Risk HPV DNA Detection with Genotyping (Molecular component) (03/14/2023 8:57 AM CDT) HPV HR 16 Not Detected Not Detected GUY CHRISTOPHER Comment:Testing performed by : [facility], [address] [place] [address] HPV HR 18 Not Detected Not Detected GUY CHRISTOPHER Comment:Testing performed by : [facility], [address] [place]., [address] HPV HR Non 16/18 Not Detected Not Detected GUY CHRISTOPHER Comment: Interpretive Data Nucleic acid amplification for [...] this test have been verified by the [facility] Molecular Infectious Disease laboratory. Correlate with separately reported cytology results, as applicable. Interpretive data last revised 22 Testing performed by: [facility], [address] [place]., [address] Endocervical 03/14/2023 8:57 AM CDT 03/16/2023 7:35 PM CDT us Cordell Dubose MD LAB BODY FLUIDS AND STOOLS ORDERABLES Final Result [id number] [facility] Department [place] [address] from Last 3 Months or Most Recently Relevant to Health Maintenance Insurance [facility] Care Teams Wet End Supervisor Relationship Specialty Start Date End Date Richy Polanco MD [address] [address] PCP - General 10/25/18 Cordell Dubose MD [facility] [address] Consulting Physician Obstetrics and Gynecology 06/17/22
[2024-07-11 15:22] LABS: Basophils Absolute Auto 0.1 K/mm3 (0.0-0.1); Basophils Percent Auto 0.6 % (0.2-1.2); Eosinophils Percent Auto 0.4 % (0-4.4); Hematocrit 41.6 % (37.0-47.0); Hemoglobin 13.6 g/dL (12.0-15.0); Immature Granulocyte Absolute 0.06 K/mm3 (0.00-0.031); Immature Granulocyte Percent A 0.6 % (0-0.5); Lymphocytes Absolute Auto 1.79 K/mm3 (0.9-3.2); Lymphocytes Percent Auto 17.9 % (18.3-44.2); Mean Corpuscular HGB Conc 32.7 g/dl (32-36); Mean Corpuscular Hemoglobin 30.2 pg (26-34); Mean Corpuscular Volume 92.2 fl (80-100); Mean Platelet Volume 10.5 fl (7.4-10.4); Monocytes Absolute Auto 0.7 K/mm3 (0.1-0.6); Monocytes Percent Auto 6.9 % (2.6-8.5); Neutrophils Absolute Auto 7.4 K/mm3 (1.3-6.7); Neutrophils Percent Auto 73.6 % (45.5-73.1); Platelet Count Result 222 k/mm3 (150-375); Red Blood Count 4.51 M/mm3 (4.2-5.4); Red Cell Distribution Width 13.1 % (11.5-14.5)
[2024-07-11 15:35] LABS: Alanine Aminotransferase 24 U/L (6-35); Albumin Level 4.6 g/dL (3.5-5.1); Alkaline Phosphatase 56 U/L (38-126); Anion Gap 8 mmol/L (4-12); Aspartate Amino Transferase 23 U/L (14-36); Bilirubin,Total 0.5 mg/dL (0.2-1.3); Blood Urea Nitrogen 12 mg/dL (7-17); Calcium 9.7 mg/dL (8.4-10.2); Carbon Dioxide 25 mmol/L (22-30); Chloride 102 mmol/L (98-107); Estimated CRCL calculation 101 ml/min; Estimated Glomerular Filt Rate > 60; Glucose 85 mg/dL (65-110); Lipase 66 U/L (23-300); Potassium 4.2 mmol/L (3.4-5.0); Sodium 135 mmol/L (137-145)
[2024-07-11 15:36] LABS: INR 1.1; Prothrombin Time 14.2 Seconds (11.1-14.7)
[2024-07-11 15:37] LABS: Partial Thromboplastin Time 28.2 Seconds (22.3-36.8)
[2024-07-11 15:46] LABS: Troponin I < 0.012 ng/mL (0.000-0.034)
--- NOTE | 2024-07-11 16:06 | ED_ITS ---
HPI - Chest Pain General Chief Complaint: Chest Pain <Tamra Moreno PA-C - Last Filed: 07/12/24 09:45> Stated Complaint: chest pain, dizzy <Tamra Moreno PA-C - Last Filed: 07/12/24 09:45> Time Seen by Provider: 07/11/24 16:06 <Tamra Moreno PA-C - Last Filed: 07/12/24 09:45> Focused HPI: This is a 38 year old female that presents to the ER for chest pain. 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 Agency like a pinch on her left side. Reports this has been off and on all day. Reports she started to have associated dizziness. Reports nausea, brain fog. Reports room spinning dizziness, light sensitivity. GENERAL: Well-appearing, well-nourished, and in no acute distress. HEAD: Normocephalic, atraumatic. CHEST: Clear to auscultation. ?No respiratory distress. HEART: Regular rate and rhythm.? NEURO: ?Alert and oriented x3. Patient screened in triage and initial orders placed.? ?Additional care and disposition to be based upon?diagnostic testing and treatment. <Tamra Moreno PA-C - Last Filed: 07/12/24 09:45> Source: patient <KADIE Talbot Last Filed: 07/11/24 19:12> Mode of arrival: ambulatory <Andrew Carvajal PA-C - Last Filed: 07/11/24 19:12> Limitations: no limitations <KADIE Talbot Last Filed: 07/11/24 19:12> History of Present Illness HPI narrative: Agree with MSE no above. Patient states that her primary complaint today is infected the dizziness. 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 She does note that today she had a little bit more of a spinning sensation. Patient states that symptoms have largely subsided since arriving to the ER. < KADIE Talbot Last Filed: 07/11/24 19:12> Related Data Home Medications: Home Medications ?Medication ?Instructions ?Recorded ?Confirmed ?Last Taken ?Type alprazolam 0.5 mg tablet 0.5 mg PO PRN PRN Anxiety 08/01/23 01/16/24 Unknown History <KADIE Kumari Last Filed: 07/12/24 09:45> Allergies/Adverse Reactions: Allergies Allergy/AdvReac Type Severity Reaction Status Date / Time Penicillins Allergy Unknown Rash Verified 01/16/24 17:05 <KADIE Kumari Last Filed: 07/12/24 09:45> Review of Systems 2 Review of Systems: All systems as dictated in HPI <KADIE Talbot Last Filed: 07/11/24 19:12> [facility] Past Medical History Medical History: Medical History Anxiety Hyperemesis gravidarum Smoker Squamous cell skin cancer, thigh <KADIE Kumari Last Filed: 07/12/24 09:45> Surgical History Surgical History: Surgical History History of section History of tubal ligation <KADIE Kumari Last Filed: 07/12/24 09:45> Family History Family History: Family History Father Family history of suicide Sibling Family history of colonic diverticulitis Other Diabetes mellitus Family history of malignant neoplasm <KADIE Kumari Last Filed: 07/12/24 09:45> Social History Social History: Social History Smoking packs per day: 1 Smoking cigarettes per day: 20.0 Years smoked: 15 Smoking pack-years: 15.00 Smoking status: Former smoker Tobacco type: cigarettes Smoking end date: 06/13/23 Alcohol intake: former Alcohol use details: SOBER 10 YEARS Substance use: current Substance use type: marijuana Living arrangements: with family Additional living arrangements comments: CHILDREN Spiritual care concerns: No <KADIE Kumari Last Filed: 07/12/24 09:45> Exam 2 Narrative: GENERAL: Well-appearing, well-nourished, and in no acute distress. HEAD: Normocephalic, atraumatic. EYES: PERRLA and EOMI. ENT: Nares clear, no rhinorrhea or epistaxis. Mucous membranes moist. Oropharynx without tonsillar hypertrophy exudate or other lesions. NECK: Supple. No adenopathy or masses. CHEST: No respiratory distress. Clear to auscultation. No wheezes rales or rhonchi HEART: Regular rate and rhythm. No murmur heard. Normal peripheral pulses. ABDOMEN: Soft, nontender, nondistended, normal active bowel sounds. MSK: Normal range of motion. No edema. SKIN: Warm, dry, no rash. NEURO: Alert and oriented x4. No focal deficits. No nystagmus. Normal speech. No ataxia PSYCH: Normal mood and affect. <Andrew Carvajal PA-C - Last Filed: 07/11/24 19:12> Course Vital Signs Vital signs: Vital Signs Temperature 97.6 F 07/11/24 15:02 Pulse Rate 82 07/11/24 15:02 Respiratory Rate 16 07/11/24 15:02 Blood Pressure 115/60 07/11/24 15:02 Pulse Oximetry 100 07/11/24 15:02 Oxygen Delivery Room Air 07/11/24 15:02 Temperature 97.6 F 07/11/24 15:02 Pulse Rate 65 07/11/24 17:24 Respiratory Rate 17 07/11/24 17:24 Blood Pressure 115/59 L 07/11/24 17:24 Pulse Oximetry 100 07/11/24 17:25 Oxygen Delivery Room Air 07/11/24 17:25 <KADIE Kumari Last Filed: 07/12/24 09:45> Vital Signs Temperature 97.6 F 07/11/24 15:02 Pulse Rate 82 07/11/24 15:02 Respiratory Rate 16 07/11/24 15:02 Blood Pressure 115/60 07/11/24 15:02 Pulse Oximetry 100 07/11/24 15:02 Oxygen Delivery Room Air 07/11/24 15:02 Temperature 97.6 F 07/11/24 15:02 Pulse Rate 65 07/11/24 17:24 Respiratory Rate 17 07/11/24 17:24 Blood Pressure 115/59 L 07/11/24 17:24 Pulse Oximetry 100 07/11/24 17:25 Oxygen Delivery Room Air 07/11/24 17:25 <Andrew Carvajal PA-C - Last Filed: 07/11/24 19:12> MDM - Chest Pain MDM Narrative Medical decision making narrative: This is a 38-year-old female who presents to the ED for chief complaint of episode of dizziness and chest pain. Vitals are normal. Exam is a unremarkable overall. No dizziness on exam. She no longer has any chest pain Lab work is unremarkable overall. Troponin and D-dimer negative. Chest x-ray shows no acute findings. CT brain is normal. Patient feels reassured by the results. She was given meclizine and Zofran here with good improvement of symptoms. She is ambulating with steady gait. I feel the presentation is most likely consistent with orthostatic dizziness. Could be affected by component of vasovagal syncope or anxiety. Patient will be discharged in stable condition. Supportive measures discussed and return precautions given. Patient is understanding and agreeable with plan for discharge with PCP follow-up. <Andrew Carvajal PA-C - Last Filed: 07/11/24 19:12> Lab Data Result diagrams: 07/11/24 15:15 07/11/24 15:15 <Tamra Moreno PA-C - Last Filed: 07/12/24 09:45> Labs: Lab Results 07/11/24 07/11/24 Range/Units 15:15 17:41 WBC 10.0 (4.5-10.0) K/mm3 RBC 4.51 (4.2-5.4) M/mm3 Hgb 13.6 (12.0-15.0) g/dL Hct 41.6 (37.0-47.0) % MCV 92.2 (80-100) fl MCH 30.2 (26-34) pg MCHC 32.7 (32-36) g/dl RDW 13.1 (11.5-14.5) % Plt Count 222 (150-375) k/mm3 MPV 10.5 H (7.4-10.4) fl Immature Gran % (Auto) 0.6 H (0-0.5) % Neut % (Auto) 73.6 H (45.5-73.1) % Lymph % (Auto) 17.9 L (18.3-44.2) % [place] % (Auto) 6.9 (2.6-8.5) % Eos % (Auto) 0.4 (0-4.4) % Baso % (Auto) 0.6 (0.2-1.2) % Lymph # (Auto) 1.79 (0.9-3.2) K/mm3 [place] # (Auto) 0.7 H (0.1-0.6) K/mm3 Eos # (Auto) 0.0 (0-0.3) K/mm3 Baso # (Auto) 0.1 (0.0-0.1) K/mm3 Abs Immat Gran (auto) 0.06 H (0.00-0.031) K/mm3 Absolute Neuts (auto) 7.4 H (1.3-6.7) K/mm3 Absolute Nucleated RBC 0.000 (0.0-0.012) K/mm3 Nucleated RBC % 0.0 (0.0-0.2) % PT 14.2 (11.1-14.7) Seconds INR 1.1 APTT 28.2 (22.3-36.8) Seconds D-Dimer < 0.27 (<0.48) ug/mL Sodium 135 L (137-145) mmol/L Potassium 4.2 (3.4-5.0) mmol/L Chloride 102 (98-107) mmol/L Carbon Dioxide 25 (22-30) mmol/L Anion Gap 8 (4-12) mmol/L BUN 12 D (7-17) mg/dL Creatinine 0.67 L (0.7-1.0) mg/dL Estim Creat Clear Calc 101 ml/min Estimated GFR > 60 (59 - ) Glucose 85 (65-110) mg/dL Calcium 9.7 (8.4-10.2) mg/dL Total Bilirubin 0.5 (0.2-1.3) mg/dL AST 23 (14-36) U/L ALT 24 (6-35) U/L Alkaline Phosphatase 56 (38-126) U/L Troponin I < 0.012 (0.000-0.034) ng/mL Total Protein 7.0 (6.3-8.2) g/dL Albumin 4.6 (3.5-5.1) g/dL Lipase 66 (23-300) U/L POC Urine HCG, Qual Negative (Negative) <Tamra Moreno PA-C - Last Filed: 07/12/24 09:45> Lab Results 07/11/24 07/11/24 Range/Units 15:15 17:41 WBC 10.0 (4.5-10.0) K/mm3 RBC 4.51 (4.2-5.4) M/mm3 Hgb 13.6 (12.0-15.0) g/dL Hct 41.6 (37.0-47.0) % MCV 92.2 (80-100) fl MCH 30.2 (26-34) pg MCHC 32.7 (32-36) g/dl RDW 13.1 (11.5-14.5) % Plt Count 222 (150-375) k/mm3 MPV 10.5 H (7.4-10.4) fl Immature Gran % (Auto) 0.6 H (0-0.5) % Neut % (Auto) 73.6 H (45.5-73.1) % Lymph % (Auto) 17.9 L (18.3-44.2) % [place] % (Auto) 6.9 (2.6-8.5) % Eos % (Auto) 0.4 (0-4.4) % Baso % (Auto) 0.6 (0.2-1.2) % Lymph # (Auto) 1.79 (0.9-3.2) K/mm3 [place] # (Auto) 0.7 H (0.1-0.6) K/mm3 Eos # (Auto) 0.0 (0-0.3) K/mm3 Baso # (Auto) 0.1 (0.0-0.1) K/mm3 Abs Immat Gran (auto) 0.06 H (0.00-0.031) K/mm3 Absolute Neuts (auto) 7.4 H (1.3-6.7) K/mm3 Absolute Nucleated RBC 0.000 (0.0-0.012) K/mm3 Nucleated RBC % 0.0 (0.0-0.2) % PT 14.2 (11.1-14.7) Seconds INR 1.1 APTT 28.2 (22.3-36.8) Seconds D-Dimer < 0.27 (<0.48) ug/mL Sodium 135 L (137-145) mmol/L Potassium 4.2 (3.4-5.0) mmol/L Chloride 102 (98-107) mmol/L Carbon Dioxide 25 (22-30) mmol/L Anion Gap 8 (4-12) mmol/L BUN 12 D (7-17) mg/dL Creatinine 0.67 L (0.7-1.0) mg/dL Estim Creat Clear Calc 101 ml/min Estimated GFR > 60 (59 - ) Glucose 85 (65-110) mg/dL Calcium 9.7 (8.4-10.2) mg/dL Total Bilirubin 0.5 (0.2-1.3) mg/dL AST 23 (14-36) U/L ALT 24 (6-35) U/L Alkaline Phosphatase 56 (38-126) U/L Troponin I < 0.012 (0.000-0.034) ng/mL Total Protein 7.0 (6.3-8.2) g/dL Albumin 4.6 (3.5-5.1) g/dL Lipase 66 (23-300) U/L POC Urine HCG, Qual Negative (Negative) <Andrew Carvajal PA-C - Last Filed: 07/11/24 19:12> Imaging Data Radiologist's impression: ITS Impressions Chest X-Ray 07/11/24 15:19 IMPRESSION: 1. No acute cardiopulmonary disease. Head CT 07/11/24 16:35 IMPRESSION: 1. Normal brain. No acute intracranial process. <Tamra Moreno PA-C - Last Filed: 07/12/24 09:45> ECG Data EKG #1: ECG completion date: 07/11/24 <KADIE Talbot Last Filed: 07/11/24 19:12> ECG completion time: 15:08 <KADIE Talbot Last Filed: 07/11/24 19:12> Prior ECG tracings: not available for review <KADIE Talbot Last Filed: 07/11/24 19:12> Interpretation: Sinus rhythm Rate 89 Normal QRS Normal QTC No acute ischemic findings <Andrew Carvajal PA-C - Last Filed: 07/11/24 19:12> Critical Care Time Critical Care Time Critical Care Time: No <KADIE Kumari Last Filed: 07/12/24 09:45> Discharge Plan Discharge Clinical Impression: Orthostatic dizziness, Atypical chest pain <KADIE Kumari Last Filed: 07/12/24 09:45> Patient Disposition: Home, Self-Care <Tamra Moreno PA-C - Last Filed: 07/12/24 09:45> Condition: Stable <KADIE Kumari Last Filed: 07/12/24 09:45> Instructions: Antibiotic Form <KADIE Kumari Last Filed: 07/12/24 09:45> Additional Instructions: Your exam and imaging today are reassuring overall. Please follow-up closely with your PCP on this issue. Suspect that the dizziness is primarily from dehydration. Please make sure they are staying very well hydrated. Take Flonase for sinus congestion. If you have any new or worsening symptoms please return to the ER for further evaluation. <Tamra Moreno PA-C - Last Filed: 07/12/24 09:45> Patient Language: Ukrainian <Tamra Moreno PA-C - Last Filed: 07/12/24 09:45> Prescriptions: New fluticasone propionate [Flonase Allergy Relief] 50 mcg/actuation spray,suspension 1 spray intranasal BID Qty: 16 0RF Rx Instructions: administer into each nostril No Action alprazolam 0.5 mg tablet 0.5 mg PO PRN PRN (Reason: Anxiety) <Tamra Moreno PA-C - Last Filed: 07/12/24 09:45> Follow-up/Referrals: Shayan Morales MD [Primary Care Provider] - <Tamra Moreno PA-C - Last Filed: 07/12/24 09:45> Time of Disposition: 18:20 <KADIE Kumari Last Filed: 07/12/24 09:45> 18:20 <Andrew Carvajal PA-C - Last Filed: 07/11/24 19:12> Quality HEART score for chest pain patients History: slightly suspicious <Andrew Carvajal PA-C - Last Filed: 07/11/24 19:12> ECG: normal <Andrew Carvajal PA-C - Last Filed: 07/11/24 19:12> Age: < or = to 45 years <Andrew Carvajal PA-C - Last Filed: 07/11/24 19:12> Risk factors: no risk factors known <Andrew Carvajal PA-C - Last Filed: 07/11/24 19:12> Troponin: < or = to 1x normal limit <Andrew Carvajal PA-C - Last Filed: 07/11/24 19:12> Heart score: 0 <Tamra Moreno PA-C - Last Filed: 07/12/24 09:45> 0 <Andrew Carvajal PA-C - Last Filed: 07/11/24 19:12>
[2024-07-11 17:24] VITALS: BP 115/59; PULSE 65; RESP 17; O2SAT 100
[2024-07-11 17:25] VITALS: O2SAT 100
[2024-07-11] MEDS: ONDANSETRON INJ 4 MG/2 ML VIAL IV PUSH (17:35)
[2024-07-11] MEDS: MECLIZINE HCL 25 MG TABLET PO (17:35)
[2024-07-11 17:41] LABS: D Dimer < 0.27 ug/mL (<0.48)
[2024-07-11 17:43] LABS: BEDSIDEPREGUCG Negative (Negative)
--- OUTSIDE RECORDS SUMMARY | 2024-07-11 17:46 | XMS_ITS | Referral Summary ---
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 Gender Identity Not on file Sexual Orientation Not on file Last Filed Vital Signs Vital Sign Reading Time Taken Comments Blood Pressure 122/80 03/16/2024 3:26 PM CDT Pulse 65 06/17/2022 9:50 AM HEEL SEAT FITTER MACHINE Temperature 36.6 C (97.8 F) 06/17/2022 8:50 AM HEEL SEAT FITTER MACHINE Respiratory Rate 16 06/17/2022 9:20 AM HEEL SEAT FITTER MACHINE Oxygen Saturation 99% 06/17/2022 9:50 AM HEEL SEAT FITTER MACHINE Inhaled Oxygen Concentration - - Weight 67.9 [...] Detected GUY CHRISTOPHER Comment:Testing performed by : [facility], [address] [place] [address] HPV HR 18 Not Detected Not Detected GUY CHRISTOPHER Comment:Testing performed by : [facility], [address] [place]., [address] HPV HR Non 16/18 Not Detected Not [...] this test have been verified by the [facility] Molecular Infectious Disease laboratory. Correlate with separately reported cytology results, as applicable. Interpretive data last revised 22 Testing performed by: [facility], [address] [place]., [address] Endocervical 03/14/2023 8:57 AM CDT 03/16/2023 7:35 PM CDT us Cordell Dubose MD LAB BODY FLUIDS AND STOOLS ORDERABLES Final Result GUY [address] [facility] Department [place] [address] from Last 3 Months or Most Recently Relevant to Health Maintenance Insurance [facility] Care Teams Circus Performer Relationship Specialty Start Date End Date Richy Polanco MD [address] [address] PCP - General 10/25/18 Cordell Dubose MD [facility] [address] Consulting Physician Obstetrics and Gynecology 06/17/22
--- OUTSIDE RECORDS SUMMARY | 2024-07-11 17:46 | XMS_ITS | Clinical Summary ---
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
--- OUTSIDE RECORDS SUMMARY | 2024-07-11 17:46 | XMS_ITS | Clinical Summary ---
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 Gender Identity Not on file Sexual Orientation [...] PM CDT Pulse 65 06/17/2022 9:50 AM IN SERVICE EDUCATOR Temperature 36.6 C (97.8 F) 06/17/2022 8:50 AM IN SERVICE EDUCATOR Respiratory Rate 16 06/17/2022 9:20 AM IN SERVICE EDUCATOR Oxygen Saturation 99% 06/17/2022 9:50 AM IN SERVICE EDUCATOR Inhaled Oxygen Concentration - - Weight 67.9 [...] Not Detected GUY Comment:Testing performed by : [facility], [address] [place]., [address] HPV HR 18 Not Detected Not Detected GUY Comment:Testing performed by : [facility], [address] [place]., [address] HPV HR Non 16/18 Not Detected Not [...] this test have been verified by the [facility] Molecular Infectious Disease laboratory. Correlate with separately reported cytology results, as applicable. Interpretive data last revised 22 Testing performed by: [facility], [address] [facility], [place]., [address] Endocervical 03/14/2023 8:57 AM CDT 03/16/2023 7:35 PM CDT us Cordell Dubose MD LAB BODY FLUIDS AND STOOLS ORDERABLES Final Result GUY [id number] [facility] Department [place] [address] from Last 3 Months or Most Recently Relevant to Health Maintenance Insurance [facility] Care Teams Talent Development Specialist Relationship Specialty Start Date End Date Richy Polanco MD [address] [address] PCP - General 10/25/18 Cordell Dubose MD [address] [address] Consulting Physician Obstetrics and Gynecology 06/17/22
--- OUTSIDE RECORDS SUMMARY | 2024-07-11 17:46 | XMS_ITS | Clinical Summary ---
Author Organization [facility] Address [facility] [place] [address] Care Team Providers Care Publicity Writer Name Role Phone Richy Polanco MD Primary Care Provider [phone] Allergies Active Allergy Reactions Criticality Noted Date [...] Date Last Indicated MRSA 12/29/2016 12/29/2016 Insurance PAW PAW Care Teams Publicity Writer Relationship Specialty Start Date End Date Richy Polanco MD [address] [address] PCP - General 07/12/16
== END 2024-07-11 18:52 | disposition home or self-care (01) ==
PROVIDERS: Emergency Medicine; Physician Assistant; Emergency Provider Physician Assistant; PCP Emergency Medicine
DX: R07.89 Other chest pain (principal); R42 Dizziness and giddiness; Z87.891 Personal history of nicotine dependence; Z85.828 Personal history of other malignant neoplasm of skin; R94.31 Abnormal electrocardiogram [ECG] [EKG]
CPT/HCPCS: 36415; 70450; 71046; 80053; 81025; 83690; 84484; 85025; 85380; 85610; 85730; 93005; 96374; 99284; A9270; J2405

== ENCOUNTER 2024-09-22 08:51 | Emergency (ER) | payer OTHER, SELFPAY ==
--- NOTE | 2024-09-22 08:52 | ED_ITS ---
HPI - URI/Sore Throat General Chief Complaint: Upper Respiratory Infection Stated Complaint: sore throat,cough, sinuses ,chills Time Seen by Provider: 09/22/24 08:52 Source: patient Mode of arrival: ambulatory Limitations: no limitations History of Present Illness HPI Narrative: Leigha is a 39-year-old female patient presenting to the clinic today with complaints of sore throat, sinus drainage, cervical lymph node swelling, cough, sinus congestion, and chills for over 1 week. Denies any known fever. States she has got a lot of sinus pressure and congestion. Cough is productive with some green and yellow phlegm. Overall feels fatigued. Denies any chest pain or shortness of breath. Related Data Home Medications ?Medication ?Instructions ?Recorded ?Confirmed ?Last Taken ?Type alprazolam 0.5 mg tablet 0.5 mg PO PRN PRN Anxiety 08/01/23 01/16/24 Unknown History Allergies Allergy/AdvReac Type Severity Reaction Status Date / Time Penicillins Allergy Unknown Rash Verified 01/16/24 17:05 Review of Systems Review of Systems: Pertinent positives per HPI. Patient denies any fever, chills, rash, visual changes, dizziness, shortness of breath, chest pain, palpitations, nausea, vomiting, diarrhea, constipation, abdominal pain, or any urinary issues. [facility] Past Medical History Medical History Squamous cell skin cancer, thigh Anxiety Smoker Hyperemesis gravidarum Surgical History Surgical History History of tubal ligation History of section Family History Family History Father Family history of suicide Sibling Family history of colonic diverticulitis Other Diabetes mellitus Family history of malignant neoplasm Social History Social History Smoking packs per day: 1 Smoking cigarettes per day: 20.0 Years smoked: 15 Smoking pack-years: 15.00 Smoking status: Former smoker Tobacco type: cigarettes Smoking end date: 06/13/23 Alcohol intake: former Alcohol use details: SOBER 10 YEARS Substance use: current Substance use type: marijuana Living arrangements: with family Additional living arrangements comments: CHILDREN Spiritual care concerns: No Comments At the time of my signature, I reviewed and agree with the nursing past medical, surgical, social, and family history. There is no relevant family history pertinent to the patient complaint. Exam Narrative: General: Well-developed, well nourished, in no apparent distress Head: Normocephalic, atraumatic Eyes: Pupils equally round and reactive to light bilaterally, EOM intact, sclera and conjunctive clear, no discharge, lids normal Ears: TMs intact and clear, ear canals clear, no drainage, grossly hearing norm al. Nose: Nares patent, green nasal discharge, moderate inflammation, maxillary sinus tenderness. Mouth: Oral pharynx red without lesions or masses, good dentition, MMM. Postnasal drip Neck: Supple, trachea midline, enlargement of anterior cervical nodes, no thyroid masses or goiter palpable. Cardio: Regular rate and rhythm, s1 and s2 normal, no murmur appreciated. Resp: Clear to auscultation bilaterally, no rhonchi, rales, wheezing or rubs Course Course Emergency Course: Portions of this record may have been created with voice recognition software. Level of Care: Express Care Visit Vital Signs Vital signs: Vital Signs Temperature 36.2 C L 09/22/24 08:58 Pulse Rate 79 09/22/24 08:58 Respiratory Rate 20 09/22/24 08:58 Blood Pressure 127/72 09/22/24 08:58 Pulse Oximetry 100 09/22/24 08:58 Oxygen Delivery Room Air 09/22/24 08:58 Temperature 36.2 C L 09/22/24 08:58 Pulse Rate 79 09/22/24 08:58 Respiratory Rate 20 09/22/24 08:58 Blood Pressure 127/72 09/22/24 08:58 Pulse Oximetry 100 09/22/24 08:58 Oxygen Delivery Room Air 09/22/24 08:58 Vital signs reviewed MDM - URI/Sore Throat MDM Narrative Medical decision making narrative: At the time of visit patient is resting comfortably on the exam table. Patient appears to be nontoxic. Plan: I suspect patient has acute bacterial rhinosinusitis. Prescription for azithromycin and prednisone was sent to the pharmacy. Patient states she normally gets a Z-Lambert in a works well for her. Supportive measures were discussed with the patient and they voiced understanding discharge instructions and agrees to treatment plan. Return precautions reviewed Differential Diagnosis Differential diagnosis: Likely upper respiratory infection, otitis media, s inusitis, viral infection, bronchitis, influenza, pharyngitis and other (COVID) Discharge Plan Discharge Clinical Impression: Acute bacterial rhinosinusitis Patient Disposition: Home Condition: Stable Instructions: Antibiotic Form, Rhinosinusitis (ED) Additional Instructions: Take prescription medications only as prescribed-azithromycin and prednisone Increase fluids and stay well hydrated Tylenol/motrin for pain/fever Flonase and OTC antihistamines as directed Vicks vapor rub to open sinuses Sinus rinses for congestion Cepacol spray, cough drops, throat lozenges, warm tea with honey/lemon, gargle salt water to soothe throat BRAT diet for diarrhea Clear liquids x 24 hours then advance as tolerated for nausea/vomiting Go to the ED if you develop a worsening in your condition- high fever not controlled by Tylenol or Motrin, dehydration, weakness, lethargy, shortness of breath, or chest pain. Follow up with your PCP in 3-5 days if symptoms persist. Patient Language: Malian Prescriptions: New azithromycin 250 mg tablet See Rx Instructions .ROUTE .COMPLEX Qty: 6 0RF Rx Instructions: For 250 mg dose pack: take 500 mg today (day 1), then 250 mg for 4 days (days 2-5) prednisone 20 mg tablet 40 mg PO DAILY 5 Days Qty: 10 0RF No Action alprazolam 0.5 mg tablet 0.5 mg PO PRN PRN (Reason: Anxiety) fluticasone propionate [Flonase Allergy Relief] 50 mcg/actuation spray,suspension 1 spray intranasal BID Qty: 16 0RF Rx Instructions: administer into each nostril Follow-up/Referrals: Shayan Morales MD [Primary Care Provider] - Time of Disposition: 09:06 Quality NIHSS Nursing Documentation ED NIHSS nursing documentation: reviewed/agree
[2024-09-22 08:58] VITALS: BP 127/72; PULSE 79; RESP 20; TEMP 36.2; O2SAT 100
== END 2024-09-22 09:12 | disposition home or self-care (01) ==
PROVIDERS: Emergency Provider Nurse Practitioner Family; PCP Emergency Medicine
DX: J01.90 Acute sinusitis, unspecified (principal); Z87.891 Personal history of nicotine dependence; F12.90 Cannabis use, unspecified, uncomplicated; F41.9 Anxiety disorder, unspecified
CPT/HCPCS: 99213; G0463

== ENCOUNTER 2024-10-09 19:03 | Emergency (ER) | payer OTHER, SELFPAY ==
[2024-10-09 19:29] VITALS: BP 122/68; PULSE 71; RESP 16; TEMP 36.2; O2SAT 100
--- NOTE | 2024-10-09 19:29 | ED_ITS ---
HPI - Skin/Abscess/Foreign Bdy General Chief complaint: Skin/Abscess/Foreign Body Stated complaint: Heat rash; Sinus; Lymph nodes swollen Time Seen by Provider: 10/09/24 19:35 Source: patient Mode of arrival: ambulatory Limitations: no limitations History of Present Illness HPI narrative: Leigha is a 39-year-old female patient presenting to the clinic today with complaints of a rash and sinus congestion. She was seen earlier this month and diagnosed with a sinus infection and finished her antibiotic and steroid. States that her symptoms have improved but she has developed nasal congestion again. Also is reporting a possible heat rash. States she was down in [place] at [employer] for few days and is concerned about a heat rash on her bilateral arms. Rash is red and itchy. No fevers, chills, body aches. Nasal drainage is clear. Related Data Allergies Allergy/AdvReac Type Severity Reaction Status Date / Time Penicillins Allergy Unknown Rash Verified 10/09/24 19:43 Review of Systems Review of Systems: Pertinent positives per HPI. Patient denies any fever, chills, headache, visual changes, dizziness, cough, runny nose, sore throat, shortness of breath, chest pain, palpitations, nausea, vomiting, diarrhea, constipation, abdominal pain, or any urinary issues. [facility] Past Medical History Medical History Squamous cell skin cancer, thigh Anxiety Smoker Hyperemesis gravidarum Surgical History Surgical History History of tubal ligation History of section Family History Family History Father Family history of suicide Sibling Family history of colonic diverticulitis Other Diabetes mellitus Family history of malignant neoplasm Social History Social History Smoking packs per day: 1 Smoking cigarettes per day: 20.0 Years smoked: 15 Smoking pack-years: 15.00 Smoking status: Former smoker Tobacco type: cigarettes Smoking end date: 06/13/23 Alcohol intake: former Alcohol use details: SOBER 10 YEARS Substance use: current Substance use type: marijuana Living arrangements: with family Additional living arrangements comments: CHILDREN Spiritual care concerns: No Comments At the time of my signature, I reviewed and agree with the nursing past medical, surgical, social, and family history. There is no relevant family history pertinent to the patient complaint. Exam Narrative: General: Well-developed, well nourished, in no apparent distress Head: Normocephalic, atraumatic Eyes: Pupils equally round and reactive to light bilaterally, EOM intact, sclera and conjunctive clear, no discharge, lids normal Ears: TMs intact and congested, ear canals clear, no drainage, grossly hearing normal. Nose: Nares patent, clear nasal discharge, no inflammation, no sinus tenderness. Mouth: Oropharynx without lesions or masses, good dentition, MMM. Neck: Supple, trachea midline, no enlargement of anterior or posterior cervical nodes, no thyroid masses or goiter palpable. Cardio: Regular rate and rhythm, s1 and s2 normal, no murmur appreciated. Resp: Clear to auscultation bilaterally anteriorly and posteriorly, no rhonchi, rales, wheezing or rubs Integumentary: [place], warm, and dry, red, raised, itchy dry skin to bilateral forearms Course Course Emergency Course: Portions of this record may have been created with voice recognition software. Level of Care: Express Care Visit Vital Signs Vital signs: Vital Signs Temperature 36.2 C L 10/09/24 19:29 Pulse Rate 71 10/09/24 19:29 Respiratory Rate 16 10/09/24 19:29 Blood Pressure 122/68 10/09/24 19:29 Pulse Oximetry 100 10/09/24 19:29 Oxygen Delivery Room Air 10/09/24 19:29 Temperature 36.2 C L 10/09/24 19:29 Pulse Rate 71 10/09/24 19:29 Respiratory Rate 16 10/09/24 19:29 Blood Pressure 122/68 10/09/24 19:29 Pulse Oximetry 100 10/09/24 19:29 Oxygen Delivery Room Air 10/09/24 19:29 Vital signs reviewed MDM - Skin/Abscess/Foreign Bdy MDM Narrative Medical decision making narrative: At the time of visit patient is resting comfortably on the exam table. Patient appears to be nontoxic. Plan: I suspect patient has dermatitis/sinus congestion. Prescription for Medrol Dosepak and triamcinolone cream was sent to the pharmacy. Supportive measures were discussed with the patient and they voiced understanding discharge instructions and agrees to treatment plan. Return precautions reviewed Differential Diagnosis Differential diagnosis: Likely abscess of skin or subcutaneous tissue, viral exanthem, dermatophytosis, urticaria, herpes zoster, allergic reaction to drug, cellulitis, eczema, insect bites, impetigo and contact dermatitis Discharge Plan Discharge Clinical Impression: Sinus congestion, Dermatitis Patient Disposition: Home Condition: Stable Instructions: Antibiotic Form, Eczema (ED), Rhinosinusitis (ED) Additional Instructions: Take prescription medications only as prescribed-Medrol Dosepak and triamcinolone cream Moisturize skin twice daily using a non scented lotion such as Lubriderm, Cetaphil, or Aquaphor. Increase fluids and stay well hydrated Tylenol/motrin for pain/fever Flonase and OTC antihistamines as directed Vicks vapor rub to open sinuses Sinus rinses for congestion Cepacol spray, cough drops, throat lozenges, warm tea with honey/lemon, gargle salt water to soothe throat BRAT diet for diarrhea Clear liquids x 24 hours then advance as tolerated for nausea/vomiting Go to the ED if you develop a worsening in your condition- high fever not controlled by Tylenol or Motrin, dehydration, weakness, lethargy, shortness of breath, or chest pain. Follow up with your PCP in 3-5 days if symptoms persist. Patient Language: Marshallese Prescriptions: New methylprednisolone [Medrol (Lambert)] 4 mg tablets,dose pack See Rx Instructions PO .COMPLEX Qty: 21 0RF Rx Instructions: orally per package directions triamcinolone acetonide 0.1 % cream 1 applic topical BID 7 Days Qty: 30 0RF No Action azithromycin 250 mg tablet See Rx Instructions .ROUTE .COMPLEX Qty: 6 0RF Rx Instructions: For 250 mg dose pack: take 500 mg today (day 1), then 250 mg for 4 days (days 2-5) Follow-up/Referrals: Shayan Morales MD [Primary Care Provider] - Time of Disposition: 19:40 Quality NIHSS Nursing Documentation ED NIHSS nursing documentation: reviewed/agree
== END 2024-10-09 20:00 | disposition home or self-care (01) ==
PROVIDERS: Emergency Provider Nurse Practitioner Family; PCP Emergency Medicine
DX: R09.81 Nasal congestion (principal); L30.9 Dermatitis, unspecified; Z87.891 Personal history of nicotine dependence
CPT/HCPCS: 99213; G0463